=== PATIENT | female | born 1990 | race Caucasian/White ===

== ENCOUNTER 2017-12-26 19:16 | Emergency (ER) | payer BC, MEDICAID, OTHER ==
[~2017-12-26] VITALS: Ht 170.2 cm; Wt 59.0 kg
[2017-12-26 19:52] LABS: BASOPHILS % (AUTO) 0.3 % (0.0-2.0); EOSINOPHILS % (AUTO) 0.2 % (0.0-7.0); HEMATOCRIT 35.8 % (31.2-41.9); HEMOGLOBIN 11.9 g/dL (10.9-14.3); LYMPHOCYTES # (AUTO) 0.9 K/uL (20.0-40.0); LYMPHOCYTES % (AUTO) 7.3 % (20.5-51.5); MEAN CORPUSCULAR HEMOGLOBIN 30.9 uug (24.7-32.8); MEAN CORPUSCULAR HGB CONC 33 g/dL (32.3-35.6); MEAN CORPUSCULAR VOLUME 92.8 fL (75.5-95.3); MONOCYTES # (AUTO) 0.6 K/uL (2.0-10.0); MONOCYTES % (AUTO) 4.9 % (0.0-11.0); NEUTROPHILS # (AUTO) 10.9 K/uL (1.8-8.9); NEUTROPHILS % (AUTO) 87.3 % (38.5-71.5); PLATELET COUNT (AUTO) 304 K/uL (179-408); RED BLOOD CELL COUNT(AUTO) 3.85 MIL/uL (3.63-4.92); WHITE BLOOD COUNT (AUTO) 12.5 K/uL (3.8-11.8)
[2017-12-26 20:01] LABS: CARBON DIOXIDE 29 mmol/L (21-32); CHLORIDE 108 mmol/L (98-107); CREATININE 0.6 mg/dL (0.6-1.3); GLUCOSE 98 mg/dL (74-106); POTASSIUM 3.9 mmol/L (3.5-5.1); UREA NITROGEN, BLOOD 9 mg/dL (7-18)
[2017-12-26 20:05] LABS: ETHANOL < 3 MG/DL (0-0)
[2017-12-26 20:07] LABS: ALANINE AMINOTRANSFERASE 26 U/L (14-59); ALKALINE PHOSPHATASE 75 U/L (50-136); ASPARTATE AMINOTRANSFERASE 16 U/L (15-37); BILIRUBIN,DIRECT 0.1 mg/dL (0.0-0.2); BILIRUBIN,TOTAL 0.4 mg/dL (0.2-1.0); TOTAL PROTEIN, SERUM 6.7 g/dL (6.4-8.2)
[2017-12-26 20:09] LABS: ACETAMINOPHEN < 2.0 ug/mL (10-30)
--- NOTE | 2017-12-26 20:45 | NUR ---
PT IN BED. PT'S MOTHER AT BEDSIDE. VSS. NO SIGNS OF ACUTE DISTRESS AT THIS TIME.
--- NOTE | 2017-12-26 20:52 | NUR ---
Call placed to George Bellamy LCSW, for PET evaluation, ETA 60 Min.
[2017-12-26] MEDS ORDERED: CLONIDINE HCL 0.2 MG TABLET ONE (21:14)
[2017-12-26] MEDS ORDERED: CLONIDINE HCL 0.2 MG TABLET PO ONE (21:15)
[2017-12-26] MEDS ORDERED: IV NORMAL SALINE 1000 ML BAG IV ONE (21:15)
[2017-12-26] MEDS ORDERED: LORAZEPAM 2 MG/1 ML VIAL ONE (21:15)
[2017-12-26] MEDS ORDERED: LORAZEPAM 2 MG/1 ML VIAL IV ONE ×4 (21:15→22:00)
--- NOTE | 2017-12-26 21:45 | NUR ---
PT INTERVIEWED BY JEANIE OFFICER [employer] #[id number]
--- NOTE | 2017-12-26 21:55 | NUR ---
[employer] AT BEDSIDE CONDUCTING PSYCH EVAL
--- NOTE | 2017-12-26 22:35 | NUR ---
PT DEEMED NOT TO BE A THREAT TO SELF OR OTHERS BY ART, BRAIN SURGEON
[2017-12-26 22:40] LABS: *BILIRUBIN,URIN NEGATIVE (NEGATIVE); *BLOOD, URINE NEGATIVE (NEGATIVE); *COLOR,URINE YELLOW (YELLOW); *KETONES,URINE TRACE (NEGATIVE); *PROTEIN,URINE 1+ (NEGATIVE); LEUKOCYTE ESTERASE ,URINE NEGATIVE (NEGATIVE); NITRITE, URINE NEGATIVE (NEGATIVE); PH,URINE 8.5 (5.0-8.0); UGLUCOSE NEGATIVE (NEGATIVE)
[2017-12-26 22:42] LABS: *URINE HCG, QUAL NEGATIVE (NEGATIVE)
[2017-12-26 22:48] LABS: *AMPHETAMINE, URINE NEGATIVE (NEGATIVE); *BARBITURATE, URINE NEGATIVE (NEGATIVE); *CANNABINOID, URINE NEGATIVE (NEGATIVE); *CLARITY,URINE SLIGHTLY HAZY (CLEAR); *COCCAINE, URINE NEGATIVE (NEGATIVE); *OPIATE, URINE POSITIVE (NEGATIVE); *PHENCYCLIDINE SCREEN,URINE NEGATIVE (NEGATIVE)
[2017-12-26 22:51] LABS: BACTERIA,URINE FEW /HPF (NONE SEEN); MUCUS,URINE FEW /LPF (0-FEW); SQUAMOUS EPITHELIAL CELL,UR MODERATE /HPF (NONE SEEN); WBC,URINE 0-3 /HPF (0-3)
--- NOTE | 2017-12-26 23:00 | NUR ---
PT MEDICALLY CLEARED BY MD WESLEY
--- NOTE | 2017-12-26 23:10 | NUR ---
Patient discharged to home in stable conditon. Written and verbal after care instructions given. Patient verbalizes understanding of instructions. Patient able to ambulate unassisted with a steady gait. Patient left with all personal belongings.
[2017-12-26 23:34] VITALS: BP 122/80
== END 2017-12-26 23:10 | disposition home or self-care (01) ==
LOC: ER 19:17
DX: T41.292A Poisoning by other general anesthetics, intentional self-harm, initial encounter (principal); F32.9 Major depressive disorder, single episode, unspecified; Z77.22 Contact with and (suspected) exposure to environmental tobacco smoke (acute) (chronic); Y92.89 Other specified places as the place of occurrence of the external cause
CPT/HCPCS: 36415; 80307; 84703; 85025; 87086; 93005; A4663; G0480; G0480-TC; J2060; J7040

== ENCOUNTER 2018-02-20 03:59 | Emergency (ER) | payer MEDICAID, OTHER ==
--- NOTE | 2018-02-20 04:07 | NUR ---
Patient brought in by RA 83 from home for c/o arguing with mother. No distress noted upon arrival. A/Ox4. Patient refsued to be traige or seen by ERMD upon arrival. Mother who is with patient agreed to take patient home
== END 2018-02-20 04:11 | disposition left against medical advice (07) ==
LOC: ER 04:02
DX: Z53.21 Procedure and treatment not carried out due to patient leaving prior to being seen by health care provider (principal)

== ENCOUNTER 2020-11-29 17:57 | Emergency (ER) | payer MEDICAID ==
[~2020-11-29] VITALS: Ht 180.3 cm; Wt 74.8 kg
[2020-11-29] MEDS ORDERED: MORPHINE SULFATE 4 MG/1 ML DISP.SYRIN IM ONE (18:15)
[2020-11-29] MEDS ORDERED: MORPHINE SULFATE 4 MG/1 ML DISP.SYRIN ONE (18:22)
[2020-11-29] MEDS ORDERED: MORPHINE SULFATE 2 MG/1 ML DISP.SYRIN ONE (18:22)
--- NOTE | 2020-11-29 18:54 | NUR ---
Dr Chamberlain at the bedside for MSE.
--- NOTE | 2020-11-29 19:15 | NUR ---
Recieved report from JAYJAY Mojica.
--- NOTE | 2020-11-29 20:05 | NUR ---
lab at bedside
[2020-11-29] MEDS ORDERED: HYDROMORPHONE 1 MG/1 ML DISP.SYRIN IV ONE ×2 (20:30→21:30)
[2020-11-29] MEDS ORDERED: HYDROMORPHONE 1 MG/1 ML DISP.SYRIN ONE ×2 (20:43→21:27)
[2020-11-29 20:54] LABS: BASOPHILS % (AUTO) 0.7 % (0.0-2.0); EOSINOPHILS # (AUTO) 0.2 K/uL (0.0-0.7); EOSINOPHILS % (AUTO) 3.6 % (0.0-7.0); HEMATOCRIT 26.3 % (31.2-41.9); HEMOGLOBIN 8.7 g/dL (10.9-14.3); LYMPHOCYTES # (AUTO) 1.6 K/uL (20.0-40.0); LYMPHOCYTES % (AUTO) 23.3 % (20.5-51.5); MEAN CORPUSCULAR HEMOGLOBIN 30.9 uug (24.7-32.8); MEAN CORPUSCULAR HGB CONC 33 g/dL (32.3-35.6); MEAN CORPUSCULAR VOLUME 93.4 fL (75.5-95.3); MONOCYTES # (AUTO) 0.7 K/uL (2.0-10.0); MONOCYTES % (AUTO) 9.7 % (0.0-11.0); NEUTROPHILS # (AUTO) 4.3 K/uL (1.8-8.9); NEUTROPHILS % (AUTO) 62.7 % (38.5-71.5); PLATELET COUNT (AUTO) 392 K/uL (179-408); RED BLOOD CELL COUNT(AUTO) 2.81 MIL/uL (3.63-4.92); WHITE BLOOD COUNT (AUTO) 6.8 K/uL (3.8-11.8)
[2020-11-29 21:05] LABS: CARBON DIOXIDE 26 mmol/L (21-32); CHLORIDE 104 mmol/L (98-107); CREATININE 0.7 mg/dL (0.6-1.3); GLUCOSE 92 mg/dL (74-106); POTASSIUM 4.3 mmol/L (3.5-5.1); UREA NITROGEN, BLOOD 10 mg/dL (7-18)
[2020-11-29 21:11] LABS: ALANINE AMINOTRANSFERASE 37 U/L (14-59); ALKALINE PHOSPHATASE 180 U/L (50-136); ASPARTATE AMINOTRANSFERASE 27 U/L (15-37); BILIRUBIN,TOTAL 0.3 mg/dL (0.2-1.0); TOTAL PROTEIN, SERUM 6.2 g/dL (6.4-8.2)
--- NOTE | 2020-11-29 21:20 | NUR ---
Pt. co 01/24 pain in her leg. notified
--- NOTE | 2020-11-29 21:29 | NUR ---
xray at bedside
--- NOTE | 2020-11-29 22:02 | NUR ---
Pt. reports pain in her head and legs is now tolerable since given pain medication. Pt. on monitor, vss. Mother is at the bedside. Will continue to monitor.
--- NOTE | 2020-11-29 22:02 | NUR ---
Pt. reports pain medication helped and her pain is tolerable. Assisted pt to restroom and provided clothing to pt to make her more comfortable. Pt is on the monitor, vss. Fall risk precautions in place. Pts. mother is at the bedside. Will continue to monitor.
--- NOTE | 2020-11-29 22:53 | NUR ---
MD Chamberlain spoke on phone with Dr. Damian, the patient's pcp, to discuss pt.s care.
--- NOTE | 2020-11-29 22:58 | NUR ---
Covid results faxed to Pt.'s insurance, Varsha, the community case manager for the Pts insurance is arranging transport and bed at [facility].
--- NOTE | 2020-11-30 00:45 | NUR ---
Patient does not wish to proceed with medical care recommended by Dr. Chamberlain. Patient given information related to possible complications, up to and including , which could occur as a result of leaving the hospital at this time. Patient verbalizes understanding of risks involved due to leaving against medical advice. Patient has signed AMA form.
--- NOTE | 2020-11-30 00:45 | NUR ---
Patient left ama, mother transported pt. All belongings went with pt.
== END 2020-11-30 00:45 | disposition left against medical advice (07) ==
LOC: ER 17:57
DX: M79.651 Pain in right thigh (principal); S72.351D Displaced comminuted fracture of shaft of right femur, subsequent encounter for closed fracture with routine healing; V49.9XXD Car occupant (driver) (passenger) injured in unspecified traffic accident, subsequent encounter; F17.200 Nicotine dependence, unspecified, uncomplicated; D64.9 Anemia, unspecified; Z20.822 Contact with and (suspected) exposure to COVID-19
CPT/HCPCS: 36415; 72170; 73551; 80053; 84702; 85025; 87426; 96372; 96374; 99285; J1170 ×2; J2270 ×2; A4663